=== PATIENT | male | born 1935 | race Caucasian/White ===

== ENCOUNTER → 2018-03-28 05:50 | Outpatient (CLI) | payer MEDICARE, SELFPAY ==
--- NOTE | 2018-03-28 10:27 | STRESSREP ---
Stress Test Report Pharmacologic myocardial perfusion stress test. 82-year-old man with a history of chest pain. Medications: Elavil, metoprolol, levothyroxine. Stress protocol: Resting EKG demonstrates normal sinus rhythm with a rate of 69 bpm left bundle branch block is noted resting blood pressures 146/74 mmHg. 0.4 mg regadenoson was infused per usual protocol followed by rapid intravenous saline flush injection. Continuous EKG monitoring was performed. The maximum heart rate attained was 77 bpm which was 55% maximum predicted heart rate maximum workload was 1 metabolic equivalent. Patient maintained sinus rhythm throughout the recording with a left bundle branch block. Myocardial perfusion protocol. 14.3 mCi of technetium 99m sestamibi was injected at rest. 0.4 mg of regadenoson was infused per usual protocol peak infusion 44.4 mCi of technetium 99m sestamibi was injected stress images were obtained stress and rest images were reconstructed and compared in the short axis vertical long horizontal long axis. Gated images were also obtained Perfusion SPECT analysis. Review of the images demonstrate normal uptake of tracer noted in all areas of the myocardium. The resting images similarly demonstrate normal uptake of tracer noted in all areas of the myocardium. No areas of reversibility are noted suggest ischemia and no previous infarct is noted. Gated SPECT analysis: Gated ejection fraction is noted to be 48% with mild global hypokinesis. Conclusion: Mild cardiomyopathy present. Normal pharmacologic myocardial perfusion stress test.
== END ==
PROVIDERS: Family Provider Family Medicine; PCP Family Medicine; Visit Provider Nurse Practitioner Family
DX: I25.10 Atherosclerotic heart disease of native coronary artery without angina pectoris (principal); I35.0 Nonrheumatic aortic (valve) stenosis; R07.9 Chest pain, unspecified; Z95.2 Presence of prosthetic heart valve; Z95.1 Presence of aortocoronary bypass graft
CPT/HCPCS: 78452; 93017; A9500; A4216; J2785

== ENCOUNTER → 2018-11-07 09:31 | Outpatient (CLI) | payer MEDICARE, SELFPAY | PROVIDERS: Family Provider Family Medicine; PCP Family Medicine; Visit Provider Family Medicine | DX: J44.1 Chronic obstructive pulmonary disease with (acute) exacerbation (principal) | CPT/HCPCS: 87070; 87205 ==

== ENCOUNTER → 2019-04-22 13:30 | Outpatient (CLI) | payer MEDICARE, SELFPAY ==
[2019-04-04 09:38] VITALS: BMI 39.9
--- NOTE | 2019-04-22 13:34 | ECHOD_ITS ---
Reason For Study: AVR, CABG Procedure This was a 2D Doppler, Color Flow transthoracic echocardiogram. Exam performed in department. Left Ventricle Normal LV size. Moderate concentric left ventricular hypertrophy. Left ventricular systolic function is normal. The estimated ejection fraction is 65 %. Stage 2 diastolic dysfunction. No regional wall motion abnormalities noted. Right Ventricle Normal RV size. ICD or pacer leads identified within the right ventricle. Normal systolic function. Atria The left atrium is moderately enlarged. Normal right atrium. Mitral Valve There is mild to moderate mitral annular calcification. Mild (1+) eccentric mitral valve insufficiency. Tricuspid Valve Normal tricuspid valve. Mild (1+) tricuspid valve insufficiency. Pulmonary artery systolic pressure is 45 mmHg. Aortic Valve Peak aortic valve gradient 44 mmHg. Mean aortic valve gradient 23 mmHg. Mild aortic stenosis. Calculated aortic valve area (continuity equation) is 1.2 cm2. Bioprosthetic aortic valve. Pulmonic Valve Normal pulmonic valve. Great Vessels Normal aortic root. The pulmonary artery is normal size. Normal inferior vena cava. Pericardium/Pleural No pericardial effusion. MMode/2D Measurements & Calculations LVIDd: 4.7 cm IVSd: 1.3 cm LVOT diam: 1.9 cm LVIDs: 2.6 cm LVPWd: 1.6 cm LVOT area: 2.7 cm2 RVDd: 3.4 cm FS: 44.3 % Ao root diam: 3.1 cm LAV(MOD-bp): 89.4 ml EDV(MOD-sp4): 68.5 ml LAV(MOD-bp) Indexed: 47.2 ml/m2 ESV(MOD-sp4): 27.2 ml LAV(MOD-sp2): 87.7 ml EF(MOD-sp4): 60.3 % LAV(MOD-sp4): 90.6 ml EDV(MOD-sp2): 76.7 ml SV(MOD-sp4): 41.3 ml SV(MOD-sp2): 54.2 ml EF(MOD-sp2): 70.7 % LA A4 area: 26.9 cm2 LA dimension(2D): 5.2 cm RA A4 area: 19.0 cm2 Doppler Measurements & Calculations MV E max braden: 149.5 cm/sec Lat Peak E' Braden: 7.4 cm/sec Med Peak E' Braden: 4.0 cm/sec MV A max braden: 145.2 cm/sec E/E' lat: 20.3 E/E' med: 37.3 MV E/A: 1.0 MV V2 max: 161.3 cm/sec MV P1/2t max braden: 155.9 cm/sec Ao V2 max: 330.6 cm/sec MV max P.4 mmHg MV P1/2t: 74.2 msec Ao max P.7 mmHg MV V2 mean: 113.5 cm/sec Ao V2 mean: 227.7 cm/sec MV mean P.5 mmHg MV dec slope: 615.7 cm/sec2 Ao mean P.3 mmHg MV V2 VTI: 44.0 cm MVA(P1/2t): 3.0 cm2 Ao V2 VTI: 73.2 cm MVA(VTI): 2.0 cm2 PAMELA(I,D): 1.2 cm2 PAMELA(V,D): 1.2 cm2 LV V1 max: 144.2 cm/sec SV(LVOT): 87.3 ml PA V2 max: 120.5 cm/sec LV V1 max P.3 mmHg LV V1 mean P.9 mmHg LV V1 mean: 104.8 cm/sec LV V1 VTI: 32.2 cm TR max braden: 312.0 cm/sec TR max P.0 mmHg Interpretation Summary Normal LV size. Left ventricular systolic function is normal. The estimated ejection fraction is 65 %. Pulmonary artery systolic pressure is 45 mmHg. Moderate concentric left ventricular hypertrophy. The left atrium is moderately enlarged. Stage 2 diastolic dysfunction. Bioprosthetic aortic valve. Ordering Physician: Tono Reyes Referring Physician: Johnny Cohen Performed By: Radha Curran RDCS
== END ==
PROVIDERS: Family Provider Family Medicine; PCP Family Medicine; Referring Provider Internal Medicine Cardiovascular Disease; Visit Provider Internal Medicine Cardiovascular Disease
DX: Z95.2 Presence of prosthetic heart valve (principal)
CPT/HCPCS: 93306